=== PATIENT | female | born 1960 | race Caucasian/White ===

== ENCOUNTER → 2020-10-08 16:24 | Outpatient (CLI) | payer OTHER, SELFPAY ==
--- NOTE | ~2020-10-08 | MM_ITS ---
EXAMINATION: MM screening [facility] BI w robbin HISTORY: Screening mammogram TECHNIQUE: Craniocaudal and mediolateral oblique 3-D tomosynthesis images were obtained and synthetic 2-D images were generated. CAD analysis was submitted and interpreted. COMPARISON: 09/26/2018 bilateral digital screening mammogram 09/23/2017 diagnostic right digital mammogram 09/08/2017 bilateral digital screening mammogram BREAST PARENCHYMAL COMPOSITION: There are scattered areas of fibroglandular density. FINDINGS: Occasional benign calcifications. There is no evidence of suspicious mass, calcification, o r architectural distortion to suggest malignancy in either breast. There has been no suspicious inter milka change. IMPRESSION: 1. No mammographic evidence of malignancy. 2. Recommend routine screening mammography in one year. BI-RADS Category 2: Benign finding(s). Reviewed, dictated and finalized at location A.
== END ==
PROVIDERS: Visit Provider Obstetrics & Gynecology Gynecology
DX: Z12.31 Encounter for screening mammogram for malignant neoplasm of breast (principal)
CPT/HCPCS: 77063; 77067

== ENCOUNTER → 2020-11-12 15:09 | Outpatient (CLI) | payer OTHER, SELFPAY ==
--- NOTE | ~2020-11-12 | US_ITS ---
EXAMINATION: US transvaginal DATE: 11/12/2020 15:29 INDICATION: Postmenopausal bleeding Comparison:No prior studies for comparison. TECHNIQUE: Multiple transabdominal and endovaginal sonographic images of the pelvis performed. FINDINGS: The uterus measures 6.9 x 3.1 x 3.9 cm. The endometrial complex measures 5 mm. The ovaries are not visualized. No adnexal masses. There is no free fluid in the pelvis. There are no abnormal masses seen on either side. IMPRESSION: 1. Thickened endomtrial complex. The differential diagnosis includes endometrial hyperplasia, polyp a nd carcinoma. Biopsy is recommended. Reviewed, dictated and finalized at location A. IMPRESSION: 1. Thickened endomtrial complex. The differential diagnosis includes endometria l hyperplasia, polyp and carcinoma. Biopsy is recommended.
== END ==
PROVIDERS: Visit Provider Nurse Practitioner
DX: N95.0 Postmenopausal bleeding (principal); R93.89 Abnormal findings on diagnostic imaging of other specified body structures
CPT/HCPCS: 76830

== ENCOUNTER 2021-01-13 00:46 | Day surgery (SDC) | payer OTHER, SELFPAY ==
[2021-01-02 14:58] VITALS: BMI 37.1
[2021-01-13] MEDS: ACETAMINOPHEN 500 MG TABLET 1000 MG PO (06:35)
[2021-01-13] MEDS: LACTATED RINGERS 1,000 ML 30 ML IV CONT (06:36)
[2021-01-13 07:00] VITALS: BP 136/73; PULSE 84; RESP 16; TEMP 36.8; O2SAT 97
[2021-01-13] MEDS: SCOPOLAMINE 1.5 MG PATCH TRANSDERM (07:00)
--- NOTE | 2021-01-13 07:01 | WPDANESEPPF ---
Anes - Initial Pre Proc Eval Procedure: Operation Date: 01/13/21 07:30 Proposed Procedures p Hysteroscopy Dilation and Curettage - Lucy Obregon MD Date/Time: 01/13/21 07:01 Surgeon: Lucy Obregon MD Pre Op Diagnosis: post menopausal bleeding Patient Data Age: 60 Gender: F Height: 1.68 m Weight: 104.5 kg Allergies Allergy/AdvReac Type Severity Reaction Status Date / Time amoxicillin AdvReac Intermediate NAUSEA/VOMI Unverified 01/02/21 14:44 TING Home Medications Medication Instructions Recorded Confirmed Type Lactobac 40-Bifido 3-S.thermop 1 cap PO QAM 01/02/21 01/02/21 History [Probiotic] ascorbate calcium-bioflavonoid 1 tablet PO DAILY 01/02/21 01/02/21 History [Lachelle-C] aspirin [Aspir-81] 81 mg PO DAILY 01/02/21 01/02/21 History cholecalciferol (vitamin D3) 50 mcg PO DAILY 01/02/21 01/02/21 History [Vitamin D3] metoprolol succinate 25 mg PO HS 01/02/21 01/02/21 History Patient hx anesthesia problems: none Family hx anesthesia problems: post op nausea/vomiting Results Review: All pre-operative results and documents have been reviewed as part of the pre-operative evaluation. [facility] Past Medical History Medical History History of Holter monitoring ROJELIO (obstructive sleep apnea) Palpitations Surgical History Surgical History H/O mitral valve repair Social History Social History Smoking status: Never smoker Living arrangements: with family Spiritual care concerns: No Anes - Eval Final PreProcedure Day of Procedure 01/13/21 07:01 Patient weight: obese Heart: regular rate and rhythm Lungs: clear to auscultation Airway: Mallampati scale class II Neurological: alert and oriented Last oral intake: >/= 8 hours ASA classification: III Emergent: no Anesthetic plan: proceed Anesthesia type and monitoring: general GIVS and standard monitoring Results Review: All pre-operative results and documents have been reviewed as part of the pre-operative evaluation. Informed Consent: The patient's anesthetic plan and its attendant risks and benefits were discussed with the patient/family/POA. Questions were solicited and answers provided to the satisfaction of the patient/family/POA.
--- NOTE | 2021-01-13 07:12 | PM.HPGS ---
History of Present Illness History of Present Illness Consent: Risks, benefits, and alternatives have been discussed and questions answered. Patient agrees to proceed with procedure. Chief complaint: post menopausal bleeding Narrative: Concha De Leon is a 60 year old female with an episode of postmenopausal bleeding. Patient underwent pelvic ultrasound which revealed a thickened endometrial lining. It was recommended to further evaluate with D and C hysteroscopy. Risks of infection, bleeding, and perforation were reviewed. Possible pathology was discussed. Patient voiced understanding and agrees to proceed Review of Systems Constitutional: Constitutional: Reports fatigue Gastrointestinal: Gastrointestinal: Reports heartburn Genitourinary: Genitourinary: Reports vaginal dryness [facility] Past Medical History Medical History (Updated 01/13/21 @ 07:15 by Lucy Obregon MD) History of Holter monitoring (normal spontaneous vaginal delivery) x3 ROJELIO (obstructive sleep apnea) Palpitations Surgical History Surgical History (Updated 01/13/21 @ 07:15 by Lucy Obregon MD) H/O mitral valve repair History of tonsillectomy and adenoidectomy Social History Social History Smoking status: Never smoker Living arrangements: with family Spiritual care concerns: No Meds Home Medications and Allergies Home Medications Medication Instructions Recorded Confirmed Type Lactobac 40-Bifido 3-S.thermop 1 cap PO QAM 01/02/21 01/02/21 History [Probiotic] ascorbate calcium-bioflavonoid 1 tablet PO DAILY 01/02/21 01/02/21 History [Lachelle-C] aspirin [Aspir-81] 81 mg PO DAILY 01/02/21 01/02/21 History cholecalciferol (vitamin D3) 50 mcg PO DAILY 01/02/21 01/02/21 History [Vitamin D3] metoprolol succinate 25 mg PO HS 01/02/21 01/02/21 History Allergies Allergy/AdvReac Type Severity Reaction Status Date / Time amoxicillin AdvReac Intermediate NAUSEA/VOMI Unverified 01/02/21 14:44 TING Exam Const: General: healthy appearing and alert Orientation/consciousness: patient oriented x3 Resp: Effort & Inspection: normal respiratory effort Auscultation: clear to auscultation bilaterally Cardio: Rate: regular rate Rhythm: regular rhythm GI: GI Palp: Yes Soft to palpation, No Tenderness to palpation present (GI) and No Palpable mass present : External Female Exam: normal external appearance Speculum Exam - Vagina: normal appearance of the vagina and normal vaginal discharge Speculum Exam - Cervix: normal appearance of the cervix Bimanual exam- vagina & uterus: uterine size normal and consistency normal Bimanual Exam- Adnexa, other: normal adnexae and No adnexal tenderness Neuro: General: patient oriented x3 Assessment and Plan Assessment and plan (1) Post-menopausal bleeding: Code(s): N95.0 - Postmenopausal bleeding Status: Acute Assessment and Plan: Plan to proceed with D&C hysteroscopy
--- NOTE | 2021-01-13 07:16 | WPDHPUPDATE1 ---
History and Physical Update Update Date/Time: 01/13/21 07:16 History and Physical has been reviewed, including an updated exam of the patient. There are NO changes in the patient's condition. Risks, benefits, and alternatives have been discussed and questions answered. Patient agrees to proceed with procedure.
[2021-01-13 07:25] VITALS: BP 125/58; PULSE 70; RESP 20
[2021-01-13] MEDS: KETOROLAC 30 MG/ML VIAL (*BKC) IV PUSH (07:50)
--- NOTE | 2021-01-13 07:50 | P.OP_ITS ---
Procedure Note - Detailed Date of Procedure 01/13/21 Pre-op Diagnosis post menopausal bleeding Post-op Diagnosis same Procedure Performed D&C hysteroscopy with MyoSure resection of polyps Surgeon Lucy Obregon MD Anesthesia MAC and local Findings The cervix is stenotic. The uterus sounds to 7cm and appears grossly atrophic. There are 2 polyps on the posterior fundal surface. Description of Procedure The patient was taken to the operating room placed under anesthesia in the dorsal lithotomy position. She was prepped and draped in the usual sterile fashion. [place] speculum was placed in the vagina and the cervix grasped on the anterior lip with a tenaculum. The cervix was noted to be stenotic therefore the os Finders were used to open the external os. The uterus is then sounded to 7cm. The cervix is serially dilated with Hegar. The diagnostic hysteroscope is placed with the stated findings. The MyoSure device is opened and placed and under direct visualization both polyps are removed. The instruments are removed and the medium sharp curette used to sharply curette the endometrium until a good uterine cry was noted in all areas. Minimal materials obtained consistent with the atrophic appearance. All instruments are removed and the patient awakened from anesthesia. She was taken to recovery in stable condition. Sponge, needle, and instrument counts are correct per the OR staff. Estimated Blood Loss 5 Drains No Packing No Pathology yes (Endometrial shavings and curettings) Complications No immediate complications Condition stable Disposition PACU
[2021-01-13 07:55] VITALS: BP 114/51; PULSE 87; RESP 20; O2SAT 86
[2021-01-13 08:25] VITALS: BP 120/68; PULSE 71; RESP 20; O2SAT 98
[2021-01-13 08:55] VITALS: BP 125/56; PULSE 71; RESP 20; O2SAT 94
== END 2021-01-13 09:17 | disposition home or self-care (01) ==
PROVIDERS: PCP Internal Medicine; Visit Provider Obstetrics & Gynecology Gynecology
PROC: 0U5B8ZZ Destruction of Endometrium, Via Natural or Artificial Opening Endoscopic (ICD-10-PCS; CPT 58563; principal; 2021-01-13 07:30)
DX: N95.0 Postmenopausal bleeding (principal); N84.0 Polyp of corpus uteri; N88.2 Stricture and stenosis of cervix uteri; G47.33 Obstructive sleep apnea (adult) (pediatric); Z79.82 Long term (current) use of aspirin; E66.9 Obesity, unspecified; Z68.38 Body mass index [BMI] 38.0-38.9, adult
CPT/HCPCS: 58558; 88305; A9270; J1885; J2250; J2405; J2704; J3010; J7030; J7120

== ENCOUNTER 2021-10-15 15:34 | Outpatient (CLI) | payer OTHER, SELFPAY ==
--- NOTE | ~2021-10-15 | MM_ITS ---
EXAMINATION: MM screening [facility] BI w robbin HISTORY: Screening TECHNIQUE: Craniocaudal and mediolateral oblique 3-D tomosynthesis images were obtained and synthetic 2-D images were generated. CAD analysis was submitted and interpreted. COMPARISON: Comparison to multiple prior studies sequentially, with oldest reviewed study dated 09/08. BREAST PARENCHYMAL COMPOSITION: There are scattered areas of fibroglandular density. FINDINGS: There is no evidence of suspicious mass, calcification, or architectural distortion to sugg est malignancy in either breast. There has been no suspicious interval change. IMPRESSION: 1. No mammographic evidence of malignancy. 2. Recommend routine screening mammography in one year. BI-RADS Category 1: Negative Reviewed, dictated and finalized at location A.
== END 2021-10-15 15:35 | disposition home or self-care (01) ==
PROVIDERS: PCP Internal Medicine; Visit Provider Nurse Practitioner
DX: Z12.31 Encounter for screening mammogram for malignant neoplasm of breast (principal)
CPT/HCPCS: 77063; 77067

== ENCOUNTER → 2022-08-04 15:23 | Outpatient (CLI) | payer OTHER, SELFPAY ==
--- NOTE | ~2022-08-04 | US_ITS ---
EXAMINATION: US transvaginal DATE: 08/04/2022 15:50 INDICATION: Postmenopausal bleeding Comparison:Ultrasound dated 11/12/2020 TECHNIQUE: Multiple endovaginal sonographic images of the pelvis performed. FINDINGS: The uterus measures 8.8 x 4.3 x 5.7 cm. There is a slightly hyperechoic mass in the uterus measuring 1.3 cm, compatible with a fibroid. The endometrial complex measures 6 mm. The ovaries are not visualized. There is no free fluid in the pelvis. There are no abnormal masses seen on either side. IMPRESSION: 1. Thickened endomtrial complex. The differential diagnosis includes endometrial hyperplasia, polyp a nd carcinoma. Biopsy is recommended. 2: Small uterine fibroid measuring 1.3 cm. Reviewed, dictated and finalized at location A. IMPRESSION: 1. Thickened endomtrial complex. The differential diagnosis includes endometria l hyperplasia, polyp and carcinoma. Biopsy is recommended. 2: Small uterine fibroid measuring 1.3 cm.
== END ==
PROVIDERS: PCP Internal Medicine; Visit Provider Advanced Practice Midwife
DX: D25.9 Leiomyoma of uterus, unspecified (principal); R93.89 Abnormal findings on diagnostic imaging of other specified body structures; N95.0 Postmenopausal bleeding
CPT/HCPCS: 76830

== ENCOUNTER → 2022-10-22 10:22 | Outpatient (CLI) | payer OTHER, SELFPAY ==
--- NOTE | ~2022-10-22 | MM_ITS ---
EXAMINATION: MM screening [facility] BI w robbin HISTORY: Screening mammogram TECHNIQUE: Craniocaudal and mediolateral oblique 3-D tomosynthesis images were obtained and synthetic 2-D images were generated. CAD analysis was submitted and interpreted. COMPARISON: 10/15/2021, 10/08/2020, 09/26/2018 BREAST PARENCHYMAL COMPOSITION: There are scattered areas of fibroglandular density. FINDINGS: No suspicious mass, calcification, or architectural distortion are identified in either kristian ast to suggest malignancy. There has been no suspicious interval change. IMPRESSION: 1. No mammographic evidence of malignancy. 2. Recommend routine screening mammography in one year. BI-RADS Category 1: Negative Reviewed, dictated and finalized at location A.
== END ==
PROVIDERS: PCP Nurse Practitioner; Visit Provider Nurse Practitioner
DX: Z12.31 Encounter for screening mammogram for malignant neoplasm of breast (principal)
CPT/HCPCS: 77063; 77067

== ENCOUNTER 2022-12-07 00:21 | Day surgery (SDC) | payer OTHER, SELFPAY ==
--- NOTE | 2022-11-30 17:19 | PC.NURSE ---
Report to the Outpatient Waiting Room, entrance under the green pavilion located off [facility], at time 0615 on date 12/07/22. Planned Procedure Time: 0615. Time changes happen often and if your time is changed the preop area will call you the afternoon before. - You and your visitor will be asked to self-screen and do not enter if you have any COVID symptoms. - A mask is optional within the hospital at this time. Patients may have clear liquids (water, carbonated beverages, clear teas, apple juice) until 3 hours prior to surgery with a maximum of 20 ounces. 0515 - No food from midnight until time of surgery - Infants may have breast milk until 4 hours before surgery, formula 6 hours prior to surgery. - Children will be allowed to drink immediately following surgery. If applicable, please bring a bottle or sippy cup to assist with drinking. Juice, water, soda, and popsicles are readily available. For infants on formula, please bring formula the day of surgery. Pacifiers are allowed. Take the following medications with a SIP of water the morning of surgery: metoprolol, thyroid BRANCH GENERAL MANAGER DO NOT STOP ANY OF YOUR OTHER PRESCRIPTION MEDICATIONS PRIOR TO SURGERY ?EXCEPT THE FOLLOWING Medications to discontinue per physician check with Dr. Obregon regarding stopping ASA, vitamins and supplements, progesterone Date to take last dose vitamins and supplements- 12/04/22, progesteron- 12/06/22, Aspirin- check with Dr. Obregon Please no make-up, nail slovenian, hairspray, perfume, deodorant, or body powder the day of surgery. No jewelry (including any body piercings) or valuables the day of surgery, leave them at home. Please take a shower or bath the night before, or the morning of, surgery with an antibacterial soap. Wear comfortable, loose fitting clothing. Children are encouraged to wear pajamas. - Jewelry must be removed prior to entering the operating room. Rings and piercings that are not removed may be cut off. - The hospital will not accept responsibility for valuables. - Please leave all valuables, including medications, at home the day of surgery. If you are going home after surgery, a licensed regional company truck driver must drive you home. - NO public transportation without another adult if you receive anesthesia. - We recommend that an adult stay with you for 24 hours following discharge. - We also recommend that you do not drive, make important decision, drink alcoholic beverages, or take any drugs that were not prescribed by your health care provider for at least 24 hours after your discharge time. For Pediatric surgeries, we recommend two adults accompany the child home. Follow any additional instructions given to you from your surgeon. If you or anyone in your household have experienced Covid symptoms in the past week, please notify your surgeon or the nurse liaison at the phone number below for possible testing. Telephone instructions given to Patient- Concha De Leon and asked if any additional questions and then verbalized understanding. Patient advised to call surgeon office or pre surgery nurse liaison [phone] if any additional questions.
[2022-11-30 17:27] VITALS: BMI 39.3
[2022-12-07 07:40] VITALS: BP 132/80; PULSE 85; RESP 16; TEMP 36.4; O2SAT 96
--- NOTE | 2022-12-07 07:43 | WPDHPUPDATE1 ---
History and Physical Update Update Date/Time: 12/07/22 07:43 History and Physical has been reviewed, including an updated exam of the patient. There are NO changes in the patient's condition. Risks, benefits, and alternatives have been discussed and questions answered. Patient agrees to proceed with procedure.
--- NOTE | 2022-12-07 07:43 | PM.HPGS ---
History of Present Illness History of Present Illness Consent: Risks, benefits, and alternatives have been discussed and questions answered. Patient agrees to proceed with procedure. Chief complaint: Post Menopausal Bleeding Narrative: Concha De Leon is a 62 year old female with an episode of postmenopausal bleeding and intermittent and abdominal pain. Patient had started using pellets through a physician in [place] in May. Patient underwent pelvic ultrasound which revealed a thickened endometrium 6mm. It was recommended to proceed with D&C hysteroscopy. Risks of infection, bleeding, perforation, and possible pathology are reviewed. Patient no recent episodes bleeding. Review of Systems Review of Systems: not repeated day of surgery; patient states no changes in status PMFSH Past Medical History Medical History (Updated 12/07/22 @ 07:46 by Lucy Obregon MD) (normal spontaneous vaginal delivery) x3 ROJELIO (obstructive sleep apnea) Palpitations Status post hysteroscopy 2020 with removal of polyps Surgical History Surgical History (Updated 01/13/21 @ 07:15 by Lucy Obregon MD) H/O mitral valve repair History of tonsillectomy and adenoidectomy Social History Social History Smoking status: Never smoker Substance use type: does not use Living arrangements: with family Spiritual care concerns: No Meds Home Medications and Allergies Home Medications Medication Instructions Recorded Confirmed Type Lactobacillus 40-Bifidobact 1 cap PO QAM 01/02/21 11/30/22 History 3-S.thermophilus 100 billion cell capsule (Probiotic) ascorbate calcium-bioflavonoid ER 1 tablet PO DAILY 01/02/21 11/30/22 History 1,000 mg-200 mg tab,extended release aspirin 81 mg tablet,delayed 81 mg PO DAILY 01/02/21 11/30/22 History release cholecalciferol (vitamin D3) 50 50 mcg PO DAILY 01/02/21 11/30/22 History mcg (2,000 unit) capsule (Vitamin D3) metoprolol succinate 25 mg 37.5 mg PO DAILY 01/02/21 11/30/22 History tablet,extended release 24 hr progesterone micronized 200 mg 200 mg PO DAILY 11/30/22 11/30/22 History capsule thyroid (pork) 30 mg tablet (WHIP OPERATOR 30 mg PO DAILY 11/30/22 11/30/22 History Thyroid) Allergies Allergy/AdvReac Type Severity Reaction Status Date / Time amoxicillin AdvReac Intermediate NAUSEA/VOMI Verified 11/30/22 17:03 TING Sutures AdvReac Other Verified 11/30/22 17:32 Exam Const: General: healthy appearing and alert Orientation/consciousness: patient oriented x3 Resp: Effort & Inspection: normal respiratory effort GI: GI Palp: Yes Soft to palpation, No Tenderness to palpation present (GI) and No Palpable mass present : External Female Exam: normal external appearance Speculum Exam - Vagina: normal appearance of the vagina and normal vaginal discharge Speculum Exam - Cervix: normal appearance of the cervix Bimanual exam- vagina & uterus: uterine size normal and consistency normal Bimanual Exam- Adnexa, other: normal adnexae and No adnexal tenderness Neuro: General: patient oriented x3 Assessment and Plan Assessment and plan (1) Post-menopausal bleeding: Code(s): N95.0 - Postmenopausal bleeding Status: Acute Assessment and Plan: With thickened endometrium and history of polyps it was recommended to undergo D&C hysteroscopy.
[2022-12-07 07:58] VITALS: BMI 38.8
[2022-12-07] MEDS: LACTATED RINGERS 1,000 ML 30 ML IV CONT (08:10)
[2022-12-07] MEDS: ACETAMINOPHEN 500 MG TABLET 1000 MG PO (08:22)
--- NOTE | 2022-12-07 09:13 | P.PNAN_ITS ---
Anes - Initial Pre Proc Eval Procedure: Operation Date: 12/07/22 09:45 Proposed Procedures p Hysteroscopy Dilation and Curettage - Lucy Obregon MD Date/Time: 12/07/22 09:13 Surgeon: Lucy Obregon MD Pre Op Diagnosis: Post Menopausal Bleeding Patient Data Age: 62 Gender: F Height: 1.65 m Weight: 105.9 kg Last Vital Signs Temp 36.4 C L 12/07/22 07:40 Pulse 85 12/07/22 07:40 Resp 16 12/07/22 07:40 BP 132/80 12/07/22 07:40 Pulse Ox 96 12/07/22 07:40 O2 Del Method Room Air 12/07/22 07:40 Allergies Allergy/AdvReac Type Severity Reaction Status Date / Time amoxicillin AdvReac Intermediate NAUSEA/VOMI Verified 12/07/22 07:56 TING Sutures AdvReac Other Verified 12/07/22 07:56 Home Medications Medication Instructions Recorded Confirmed Type Lactobacillus 40-Bifidobact 1 cap PO QAM 01/02/21 11/30/22 History 3-S.thermophilus 100 billion cell capsule (Probiotic) ascorbate calcium-bioflavonoid ER 1 tablet PO DAILY 01/02/21 11/30/22 History 1,000 mg-200 mg tab,extended release aspirin 81 mg tablet,delayed 81 mg PO DAILY 01/02/21 11/30/22 History release cholecalciferol (vitamin D3) 50 50 mcg PO DAILY 01/02/21 11/30/22 History mcg (2,000 unit) capsule (Vitamin D3) metoprolol succinate 25 mg 37.5 mg PO DAILY 01/02/21 11/30/22 History tablet,extended release 24 hr progesterone micronized 200 mg 200 mg PO DAILY 11/30/22 11/30/22 History capsule thyroid (pork) 30 mg tablet (PROMOTIONAL REPRESENTATIVE 30 mg PO DAILY 11/30/22 11/30/22 History Thyroid) Patient hx anesthesia problems: none Family hx anesthesia problems: none Results Review: All pre-operative results and documents have been reviewed as part of the pre- operative evaluation. [facility] Past Medical History Medical History (normal spontaneous vaginal delivery) x3 ROJELIO (obstructive sleep apnea) Palpitations Status post hysteroscopy 2021 with removal of polyps Surgical History Surgical History H/O mitral valve repair History of tonsillectomy and adenoidectomy Social History Social History Smoking status: Never smoker Substance use type: does not use Living arrangements: with family Spiritual care concerns: No Anes - Eval Final PreProcedure Day of Procedure 12/07/22 09:13 Patient weight: obese Heart: regular rate and rhythm Airway: Mallampati scale class II Neurological: alert and oriented Last oral intake: >/= 8 hours ASA classification: III Emergent: no Anesthetic plan: proceed Anesthesia type and monitoring: general GIVS and standard monitoring Results Review: All pre-operative results and documents have been reviewed as part of the pre- operative evaluation. Informed Consent: The patient's anesthetic plan and its attendant risks and benefits were discussed with the patient/family/POA. Questions were solicited and answers provided to the satisfaction of the patient/family/POA.
[2022-12-07] MEDS: ceFAZolin SODIUM 1 GM VIAL 2 GM IV PUSH (10:00)
[2022-12-07] MEDS: KETOROLAC 15 MG/ML VIAL (*BKC) IV PUSH (10:03)
--- NOTE | 2022-12-07 10:08 | P.OP_ITS ---
Procedure Note - Detailed Date of Procedure 12/07/22 Pre-op Diagnosis Post Menopausal Bleeding Post-op Diagnosis Same Procedure Performed D&C hysteroscopy Surgeon Lucy Obregon MD Anesthesia MAC Findings Uterus sounds to 9cm and appears grossly atrophic Description of Procedure The patient is taken to the operating room and placed under anesthesia in the dorsal lithotomy position. She was prepped and draped in usual sterile fashion. [place] speculum was placed in the vagina and the cervix grasped on the anterior lip with a tenaculum. The uterus is sounded to 9cm. The diagnostic hysteroscope was placed and with no abnormalities noted it is removed. The sharp small curette is used to curette the endometrium until a good uterine cry was noted in all areas. Minimal material was obtained consistent with the atrophic appearance. All instruments are removed. Sponge, needle, and instrument counts are correct per the OR staff. Patient was awakened from anesthesia and taken to recovery in stable condition. Estimated Blood Loss 5 Drains No Packing No Pathology Yes (Endometrial curettings) Complications No immediate complications Condition Stable Disposition PACU
[2022-12-07 10:09] VITALS: BP 100/59; PULSE 80; RESP 16; O2SAT 94
[2022-12-07 10:35] VITALS: BP 105/66; PULSE 75; RESP 16; O2SAT 93
[2022-12-07 11:05] VITALS: BP 99/67; PULSE 65; RESP 16
[2022-12-07 11:35] VITALS: PULSE 67; RESP 16
== END 2022-12-07 11:50 | disposition home or self-care (01) ==
PROVIDERS: PCP Internal Medicine; Visit Provider Obstetrics & Gynecology Gynecology
PROC: 0U5B8ZZ Destruction of Endometrium, Via Natural or Artificial Opening Endoscopic (ICD-10-PCS; CPT 58563; principal; 2022-12-07 09:45)
DX: N95.0 Postmenopausal bleeding (principal); N85.8 Other specified noninflammatory disorders of uterus; G47.33 Obstructive sleep apnea (adult) (pediatric); Z79.82 Long term (current) use of aspirin; E66.9 Obesity, unspecified; Z68.38 Body mass index [BMI] 38.0-38.9, adult
CPT/HCPCS: 58558; 88305; A9270; J0690; J1100; J1885; J2250; J2405; J2704; J3010; J7120

== ENCOUNTER → 2023-02-22 12:14 | Outpatient (CLI) | payer OTHER, SELFPAY ==
--- NOTE | ~2023-02-22 | DEXA_ITS ---
Bone Density Report Name: KEVON WATSON Age: 62 Sex: Female Ethnicity: White Date of : 1960 Indication: postmenopausal; screening for osteoporosis; Referring Provider: JONNA MARTIN Study: Bone densitometry was performed. Exam Date: February 22, 2023 Accession number: [id number] Bone Density: Region BMD T-score Z-score Classification AP Spine (L1-L4) 0.949 -0.9 0.8 Normal Femoral Neck (Left) 0.882 0.3 1.8 Normal Total Hip (Left) 0.977 0.3 1.5 Normal Femoral Neck (Right) 0.890 0.4 1.9 Normal Total Hip (Right) 1.047 0.9 2.1 Normal Total Hip Mean 1.012 0.6 1.8 Normal World Health Organization criteria for BMD impression classify patients as: Normal (T-score at or above -1.0), Osteopenia (T-score between -1.0 and -2.5), or Osteoporosis (T-score at or below -2.5). 10-year Fracture Risk: FRAX not reported because: All T-scores for Spine Total, Hip Total, Femoral Neck at or above -1.0 Clinical Information Provided by Patient: Has used the following medications: HRT (i.e. estrogen/hormone therapy), Vitamin D, Calcium, LOAN DOCUMENTS CLOSER Thyroid Patient maximum height was 66.0 Menopause Age: 49 Does not regularly consume dairy products Drinks caffeinated beverages Onset of menses at age 9 Number of children 3 Impression: The patient has normal bone mass. Discussion: BONE DENSITY IS ABOVE THE MINIMUM DESIRABLE LEVEL AT ALL SKELETAL SITES TESTED. This patient?s bone mineral density is above the minimum desirable level (T-score -1.0 or better) at all sites measured. The patient should follow a healthful lifestyle (good nutrition with adequate calcium and vitamin D, and appropriate weight-bearing exercise). Follow-Up: Consider repeating this study in 5 years or sooner if there is some new clinical indication. Reported by: BROWN on 02/22/2023 12:52:00 PM. Reviewed, dictated and finalized at location [facility]
== END ==
PROVIDERS: PCP Obstetrics & Gynecology Gynecology; Visit Provider Obstetrics & Gynecology Gynecology
DX: Z78.0 Asymptomatic menopausal state (principal)
CPT/HCPCS: 77080

== ENCOUNTER 2024-07-17 00:33 | Day surgery (SDC) | payer OTHER, SELFPAY ==
[2024-07-05 14:18] VITALS: BMI 31.4
--- NOTE | 2024-07-14 18:47 | P.PNAN_ITS ---
Anes - Eval Pre Procedure Procedure: Operation Date: 07/17/24 08:30 Proposed Procedures p Screening Colonoscopy - Irvin Hong MD Date/Time: 07/14/24 18:47 Pre Op Diagnosis: neoplasm screening Patient Data Age: 64 Gender: F Height: 1.63 m Weight: 83 kg Allergies Allergy/AdvReac Type Severity Reaction Status Date / Time amoxicillin AdvReac Intermediate NAUSEA/VOMI Verified 07/05/24 14:14 TING Sutures AdvReac Other Verified 07/05/24 14:14 Home Medications ?Medication ?Instructions ?Recorded ?Confirmed ?Type Lactobacillus 40-Bifidobact 1 cap PO QAM 01/02/21 07/05/24 History 3-S.thermophilus 100 billion cell capsule (Probiotic) aspirin 81 mg tablet,delayed 81 mg PO DAILY 01/02/21 07/05/24 History release cholecalciferol (vitamin D3) 50 50 mcg PO DAILY 01/02/21 07/05/24 History mcg (2,000 unit) capsule (Vitamin D3) metoprolol succinate 25 mg 37.5 mg PO DAILY 01/02/21 07/05/24 History tablet,extended release 24 hr progesterone micronized 200 mg 200 mg PO DAILY 11/30/22 07/05/24 History capsule thyroid (pork) 30 mg tablet (SECURITY CONTROL ROOM OFFICER 30 mg PO DAILY 11/30/22 07/05/24 History Thyroid) rosuvastatin 5 mg tablet (Crestor) 5 mg PO .COMPLEX 03/02/23 07/05/24 History alprazolam 0.25 mg tablet 0.25 mg PO QID PRN anxiety 07/05/24 07/05/24 History famotidine 20 mg tablet 20 mg PO BID 07/05/24 07/05/24 History tirzepatide (weight loss) 2.5 2.5 mg subcut WEEKLY 07/05/24 07/05/24 History mg/0.5 mL subcutaneous pen injector (Zepbound) Patient hx anesthesia problems: none Family hx anesthesia problems: none Results Review: All pre-operative results and documents have been reviewed as part of the pre- operative evaluation. [facility] Past Medical History Medical History (Updated 07/14/24 @ 18:48 by Sandra Sykes CRNA) SVT (supraventricular tachycardia) Status post hysteroscopy 2020 with removal of polyps (normal spontaneous vaginal delivery) x3 ROJELIO (obstructive sleep apnea) Palpitations Surgical History Surgical History History of tonsillectomy and adenoidectomy H/O mitral valve repair Social History Social History Social History: Caffeine-coffee Smoking status: Never smoker Alcohol intake: never Substance use: never Substance use type: does not use Lack of Transportation: No Lack of Food: Never True Current Housing: I Have Housing Concerned About Future Housing: No Difficulty Paying Gas/Electric Bills: No Difficulty Paying for Meds: No Currently Unemployed: No Education: High School Diploma/GED Difficulty w/ Childcare or Family Care: No Living arrangements: with family Spiritual care concerns: No Exam Day of Procedure 07/14/24 18:47
--- OUTSIDE RECORDS SUMMARY | 2024-07-17 00:36 | XMS_ITS | CONTINUITY OF CARE DOCUMENT ---
Author Name kvng, kvng Address Unknown Organization [facility] Address [address] [place] [address] Phone [phone] Care Team Providers Care Guest Relation Officer Name Role Phone Tristen BROOKS, Nicholas Unavailable YONY ABREU MD Unavailable [phone] YONY ABREU MD Unavailable [phone] PROBLEMS Condition Status Date Provider Notes Chest pain active Tita Barber VITAL SIGNS Date Observation Value Provider blood pressure, diastolic 70 mm[Hg] Cy carloz Marsh blood pressure, systolic 122 mm[Hg] Maureen Marsh SOCIAL HISTORY Date Observation Value Provider smoking status Never smoker Concha yates INS[employer]ANCE PROVID[employer] Payer name Policy type / Coverage type [place] [employer] green [employer] Other [id number] HISTORY OF PROCEDURES Procedure Date Procedure Name Provider Procedure Notes S tatus Stress EKG Sabino Benjamin MD completed
--- OUTSIDE RECORDS SUMMARY | 2024-07-17 00:36 | XMS_ITS | Encounter Summary ---
Author Organization [facility] Address [address] [place] [address] Phone Care Team Providers Care Terrazzo Worker Helper Name Role Phone Keon Pelaez MD Primary Care Provider Robin Mae MD Unavailable [phone] Harman Bonner MD Unavailable [phone] Diego Giordano MD Unavailable Encounter Details Date Type Department Care Team (Late st Contact Info) Description 05/25/2019 Orders Only [facility] Surgery [address] [facility] 8th [place] [address] [place] [phone] Diego Giordano MD [address] [place], [place] [id number] Social History Tobacco Use Types Packs/Day Years Used Date Smoking Tobacco: Never Smokeless Tobacco: Never Alcohol Use Standard Drinks/Week Comments Yes 0 (1 standard drink = 0.6 oz pur e alcohol) very rare Comments Unknown Sex and Gender Information Value Date Recorded Sex Assigned at Not on file Legal Sex Female 4:01 AM CHEMICAL TREATMENT OPERATOR Gender Identity Female 12/15/2019 8:16 PM CDT Sexual Orientation Straight 12/13/2020 8: 03 AM CDT documented as of this encounter Plan of Treatment Not on file documented as of this encounter Visit Diagnoses Not on filedocumented in this encounter Additional Health Concerns Infection Onset Date Last Indicated Resolved Time Exposure, COVID-19 Comment:Added automatically based on COVID19 lab answers indicating exposure risk 05/13/2023 05/13/2023 05/23/2023 3:[address] COVID: Suspected 05/13/2023 05/13/2023 05/13/2023 8:34 AM CHEMICAL TREATMENT OPERATOR COVID: Suspected 05/13/2023 05/13/2023 05/13/2023 2:55 PM CHEMICAL TREATMENT OPERATOR documented as of this encounter Care Teams Terrazzo Worker Helper Relationship Specialty Start Date End Date Keon Pelaez MD [address] [place] [address] PCP - General Internal Medicine 07/21/18 Robin Mae MD [address] [place] [address] Referring Physician Cardiology 08/10/18 Harman Bonner MD [address] [place] [address] Referring Physician Cardiology 04/26/19 Diego Giordano MD [address] [place] [address] Surgeon Cardiothoracic Surgery 07/04/19 documented as of this encounter
--- OUTSIDE RECORDS SUMMARY | 2024-07-17 00:36 | XMS_ITS | Encounter Summary ---
Author Organization [facility] Address [address] [place] [address] Phone Care Team Providers Care Electrolysist Name Role Phone Keon Pelaez MD Primary Care Provider [phone] Robin Mae MD Unavailable Harman Bonner MD Unavailable [phone] Diego Giordano MD Unavailable Encounter Details Date Type Department Care Team (Late st Contact Info) Description 01/17/2020 Orders Only [facility] [phone] Scanning, Provider Social History Tobacco Use Types Packs/Day Years Used Date Smoking Tobacco: Former Smokeless Tobacco: Never Comments:pt states smoked ve ry minimal when she was a teen Alcohol Use Standard Drinks/Week Comments Yes 0 (1 standard drink = 0.6 oz pur e alcohol) very rare Comments No Sex and Gender Information Value Date Recorded Sex Assigned at Not on file Legal Sex Female 4:01 AM BAG CUTTER Gender Identity Female 12/15/2019 8:16 PM CDT Sexual Orientation Straight 12/13/2020 8: 03 AM CDT documented as of this encounter Plan of Treatment Not on file documented as of this encounter Procedures Procedure Name Priority Date/Time Associated Diagnosis Comments SCAN - RADIOLOGY/IMAGING 01/17/2020 documented in this encounter Results * SCAN - RADIOLOGY/IMAGING (01/17/2020) Anatomical Region Laterality Modality Other us Provider Scanning Final Result documented in this encounter Visit Diagnoses Not on filedocumented in this encounter Additional Health Concerns Infection Onset Date Last Indicated Resolved Time Exposure, COVID-19 Comment:Added automatically based on COVID19 lab answers indicating exposure risk 05/13/2023 05/13/2023 05/23/2023 3:05 AM BAG CUTTER COVID: Suspected 05/13/2023 05/13/2023 05/13/2023 8:34 AM BAG CUTTER COVID: Suspected 05/13/2023 05/13/2023 05/13/2023 2:55 PM BAG CUTTER documented as of this encounter Care Teams Electrolysist Relationship Specialty Start Date End Date Keon Pelaez MD [address] [address] PCP - General Internal Medicine 07/21/18 Robin Mae MD [address] [address] Referring Physician Cardiology 08/10/18 Harman Bonner MD [address] [address] Referring Physician Cardiology 04/26/19 Diego Giordano MD [address] [place] [address] Surgeon Cardiothoracic Surgery 07/04/19 documented as of this encounter
--- OUTSIDE RECORDS SUMMARY | 2024-07-17 00:36 | XMS_ITS | Encounter Summary ---
Author Organization [facility] Address [address] [place] [address] Phone Care Team Providers Care Dry Chain Puller Name Role Phone Keon Pelaez MD Primary Care Provider Robin Mae MD Unavailable Harman Bonner MD Unavailable [phone] Diego Giordano MD Unavailable [phone] Encounter Details Date Type Department Care Team (Late st Contact Info) Description 05/25/2019 Orders Only [facility] Surgery [address] [facility] 8th [place] [address] [place] [phone] Diego Giordano MD [address] [place], [place] [id number] Social History Tobacco Use Types Packs/Day Years Used Date Smoking Tobacco: Never Smokeless Tobacco: Never Alcohol Use Standard Drinks/Week Comments Yes 0 (1 standard drink = 0.6 oz pur e alcohol) very rare Comments Unknown Sex and Gender Information Value Date Recorded Sex Assigned at Not on file Legal Sex Female 4:01 AM PUMP ERECTOR Gender Identity Female 12/15/2019 8:16 PM CDT [...] COVID: Suspected 05/13/2023 05/13/2023 05/13/2023 8:34 AM PUMP ERECTOR COVID: Suspected 05/13/2023 05/13/2023 05/13/2023 2:55 PM PUMP ERECTOR documented as of this encounter Care Teams Dry Chain Puller Relationship Specialty Start Date End Date Keon Pelaez MD [address] [address] PCP - General Internal Medicine 07/21/18 Robin Mae MD [address] [place] [address] Referring Physician Cardiology 08/10/18 Harman Bonner MD [address] [place] [address] Referring Physician Cardiology 04/26/19 Diego Giordano MD [address] [place] [address] Surgeon Cardiothoracic Surgery 07/04/19 documented as of this encounter
--- OUTSIDE RECORDS SUMMARY | 2024-07-17 00:36 | XMS_ITS | Referral Summary ---
Author Organization [facility] Address [address] [place] [address] Care Team Providers Care Side Splitter Name Role Phone Keon Pelaez MD Primary Care Provider [phone] oRbin Mae MD Unavailable [phone] Harman Bonner MD Unavailable [phone] Diego Giordano MD Unavailable Encounters Date Type Department Care Team Description 06/26/2024 [facility] [address] [place] [address] [address] [place] [id number] Amanda Kolb MA 06/21/2024 Telephone [facility] at [address] [address] Ana Rosa Alvarez MA 06/20/2024 2:40 PM FURNITURE DUSTER Ancillary Procedure [facility] Imaging at [address] [address] Acute cough 06/20/2024 2:30 PM FURNITURE DUSTER Office Visit [facility] at [address] [address] Coreen Siu PA Acute cough (Primary Dx) 06/14/2024 1:00 PM FURNITURE DUSTER Telemedicine [facility] [address] [facility] [address] [place] [address] Maylin Dent MD Encounter for weight loss counseling (Primary Dx); Metabolic and nutritional disorder; Obesity, Class II, BMI 35-39.9 05/15/2024 Orders Only [facility] [address] [facility] [address] [place] [address] Hazel Gaspar NP Class 2 obesity from Last 3 Months Allergies Active Allergy Reactions Criticality Noted Date Comments Amoxicillin Nausea only Low 07/21/2018 Other Other (See comments) Low 05/03/2019 Vicryl sutures from skin cancer removal, caused irritation until removed Medications aspirin 81 mg chewable tablet Take 1 tablet (81 mg total) by mouth daily 30 tablet 11 0 Active acetaminophen (TYLENOL) 500 mg tabletIndicatio ns:Pain Take 2 tablets (1,000 mg total) by mouth every 6 (six) hours as needed for pain 0 Active cholecalciferol (VITAMIN D-3) 1,000 unit Take 2 tablet/capsule (2,000 Units total) by mouth daily Active ascorbate calcium-bioflav onoid 1,000-200 mg tablet Take 1 tablet by mouth CIRILO C Active L.acidoph/B.hang g/L.plant/B.lac (PROBIOTIC ACIDOPHILUS BEADS ORAL) Take 1 tablet by mouth daily Active progesterone (PROMETRIUM) 200 mg capsule 100 mg 3 Active BIG 6 DEALER Thyroid 30 mg tablet Take 1 tablet (30 mg total) by mouth daily 3 Active ALPRAZolam (XANAX) 0.25 mg tablet Take 1 tablet (0.25 mg total) by mouth 2 (two) times a day as needed for anxiety 60 tablet 4 Active famotidine (PEPCID) 20 mg tablet Take 1 tablet (20 mg total) by mouth 2 (two) times a day 60 tablet 11 4 025 Active Winlevi 1 % cream 4 Active UNABLE TO FIND Biote Hormone therapy Active rosuvastatin (CRESTOR) 5 mg tablet Take 1 tablet (5 mg total) by mouth daily 90 tablet 3 4 Active tirzepatide, weight loss, (Zepbound) 10 mg/0.5 mL pen injectorIndicat ions:Weight Loss Management for Obese Patient (BMI >= 30) Inject 0.5 mL (10 mg total) under the skin every 7 days Start after completion of four weeks of zepbound 7.5 mg dose. 2 mL 2 5 Active metoprolol XL (TOPROL-XL) 25 mg extended release tablet TAKE 1 AND 1/2 TABLETS(37.5 MG) BY MOUTH DAILY IN THE EVENING 135 tablet 2 5 Active tirzepatide, weight loss, (Zepbound) 7.5 mg/0.5 mL pen injectorIndicat ions:Weight Loss Management for Obese Patient (BMI >= 30) Inject 0.5 mL (7.5 mg total) under the skin every 7 days 2 mL 2 5 Active ipratropium (ATROVENT) 21 mcg (0.03 %) nasal spray Administer 2 sprays into each nostril every 12 (twelve) hours 30 mL 5 Active tirzepatide, weight loss, (Zepbound) 7.5 mg/0.5 mL pen injectorIndicat ions:Weight Loss Management for Obese Patient (BMI >= 30) Inject 0.5 mL (7.5 mg total) under the skin every 7 days 2 mL 4 025 Discontinu ed(Reorder ) methylPREDNISol one (MEDROL DOSEPACK) 4 mg Dosepack Take as directed on package. 21 tablet 5 025 Active Problems Problem Noted Date Diagnosed Date Well woman exam 11/23/2023 Assessment & Plan (12/10/2023 2:33 AM CDT): -Pap: Remote history of abnormal requiring colposcopy. Previously receiving annual Paps with previous Roving Carrier, NILM [id number]. Repeated today with HPV co-testing. -HPV vaccine: Not received, no longer eligible -STI screening: Declines -Contraception: Declines -Mammogram: BI-RADS 1 10/2022, scheduled for today -Colonoscopy: Last in 2013, defer to PCP for management -Dexa: Normal 02/2023, repeat in 10 years -Reviewed AHA recommendation of 150 minutes of moderate-intensity activity per week -Counseled on consuming varied diet rich in whole grains and fruits/vegetables -Covid-19 and influenza vaccination recommendations reviewed, vaccinated and declines booster -Remainder of medical problems to be managed by PCP -Advised I do not recommend or manage testosterone pellets. Plans to continue having this managed by outside clinic. Encounter for weight loss counseling 09/27/2023 Metabolic and nutritional disorder 09/27/2023 Mixed hyperlipidemia 08/11/2023 Assessment & Plan (08/11/2023 8:30 AM CDT): Continue as before. PVC (premature ventricular contraction) 09/17/19 23 SVT (supraventricular tachycardia) 12/20/2020 Overview (08/01/2021): Symptoms with NSR; ST 105 on MCT NS SVT Cough 08/28/2020 Assessment & Plan (08/28/2020 12:44 PM CDT): Chest Xray today Allergic rhinitis 08/28/2020 Assessment & Plan (08/28/2020 12:46 PM CDT): OTC allergy med PRN (may continue coricidin or zyrtec) Hypotension 10/16/2019 S/P mitral valve repair 08/07/2019 Assessment & Plan (08/11/2023 8:30 AM CDT): Stable, doing well Acute postoperative pain 06/29/2019 Assessment & Plan (07/02/2019 1:25 PM CDT): Continue oxycodone Continue tylenolol Assessment & Plan (06/30/2019 12:45 PM CDT): Expected postop pain. Endorsing incisional pain that is relieved with current pain regimen Assessment & Plan (06/29/2019 2:21 PM CDT): Expected postop pain. Currently sedated on Precedex. - PRN dilaudid, start PRN Tylenol and Oxycodone once pt extubated and tolerating PO - Wean Precedex for PSV trial Acute blood loss anemia 06/29/2019 Assessment & Plan (07/01/2019 1:14 PM CDT): H/h stable Assessment & Plan (06/30/2019 1:08 PM CDT): Stable, no indication for transfusion Trend w am labs unless clinically indicated sooner Assessment & Plan (06/29/2019 2:25 PM CDT): Received 1 PLT intraop, no PRBC. Postop Hct 37. - No indication for transfusion - Monitor CT output hourly and correct coagulopathies if output > 150ml/hr Mitral valve insufficiency 05/02/2019 Overview (06/30/2019): 06/29/19: Complex mitral valve repair using a 34 Physio II annuloplasty ring as well as resection of the P2 portion of the leaflet by Dr. Giordano Assessment & Plan (07/04/2019 12:17 PM CDT): S/p MV repair pod 5 A-fib post op now NSR Continue beta jen, asa, low dose lasix No chest tubes, no wires. Follow up echocardiogram pending. Assessment & Plan (06/30/2019 12:44 PM CDT): S/p MV repair. ICU Standards of Care: - start aspirin - no BB until off AIRCRAFT SYSTEMS REPAIRER but adding Amio for Afib prop per CTS - Eventual B-jen for A fib ppx when off inotropes - Colace, Senna, and Miralax for bowel regimen - SSI for glycemic control Q4 hrs ( glucose 116-162) - clears for now until ensuring pt not nauseated - H2 - SCDs/add SQH - PT for decreased mobility post surgery Assessment & Plan (06/29/2019 2:26 PM CDT): S/p MV repair. ICU Standards of Care: - ASA for anticoagulation POD 1 - Eventual B-jen for A fib ppx when off inotropes - Colace, Senna, and Miralax for bowel regimen - SSI for glycemic control Q4 hrs - ADAT when extubated - GI ppx with H2 jen while intubated - SCDs for DVT ppx - Plan to start SQH POD 1 if PLT > 100 and no active bleeding - PT for decreased mobility post surgery - Continue robi-op Cefazolin and Vancomycin x 24 hrs for surgical site infection ppx ROJELIO (obstructive sleep apnea) 12/14/2018 Obesity, Class II, BMI 35-39.9 08/24/2018 Snoring 08/24/2018 Daytime sleepiness 08/24/2018 Mitral valve regurgitation 08/24/2018 Resolved Problems Problem Noted Date Diagnosed Date Resolved Date Atrial fibrillation 07/01/2019 09/17/19 23 Assessment & Plan (07/04/2019 12:17 PM CDT): Post op a-fib Maintaining SR 80's on amiodarone load day 2. Wires out yesterday Check daily qtc Acute pulmonary insufficiency 06/29/2019 07/02/2019 Assessment & Plan (07/01/2019 1:12 PM CDT): cxr today after tube removal Assessment & Plan (06/30/2019 1:01 PM CDT): NC 2L, xray with atelectasis post operatively, History of ROJELIO on home CPAP. - dc pac/cordis to facilitate pt ambulating - Out of bed, physical therapy POD 1 - Home nocturnal @ CPAP - optimize pain control to facilitate deep breathing Assessment & Plan (06/29/2019 2:33 PM CDT): Pt arrived intubated following OR. ABG WNL. History of ROJELIO on home CPAP. - Wean sedation for PSV trial with goal to extubate - Encourage incentive spirometry when extubated - Out of bed, physical therapy POD 1 - Home nocturnal CPAP Myocardial stunning 06/29/2019 07/01/19 20 Assessment & Plan (06/30/2019 1:04 PM CDT): Post procedure DAWN with normal LV/RV systolic function on AIRCRAFT SYSTEMS REPAIRER @ 4mcg, trace MR. Index 3.2, MAP 65-80, RAP < 10 - DC PAC/cordis - AIRCRAFT SYSTEMS REPAIRER wean q6h for scv02 > 65 - no indication for diuresis Assessment & Plan (06/29/2019 2:24 PM CDT): Post procedure DAWN with normal LV/RV systolic function on AIRCRAFT SYSTEMS REPAIRER @ 2mcg, trace MR. Cardiac insuffiency following cardiac surgery. CI 2.46 on arrival, CVP 10-12. - Keep AIRCRAFT SYSTEMS REPAIRER @ 2mcg - Consider wean tonight after extubated - MAP goal > 65, SBP < 140 Hypertension 06/29/2019 07/01/2019 Assessment & Plan (06/29/2019 2:26 PM CDT): No home antihypertensives. SBP up to 160s on arrival. - Nicardipine for SBP goal 130-140 Immunizations Immunization Administration Dates Next Due [employer] SARS-CoV-2 Vaccination 07/27/2020 Social History Tobacco Use Types Packs/Day Years Used Date Smoking Tobacco: Never Smokeless Tobacco: Never Tobacco Cessation:Counseling Given: Not Answered Alcohol Use Standard Drinks/Week Comments Yes 0 (1 standard drink = 0.6 oz pur e alcohol) very rare AUDIT-C Answer Date Recorded Q1: How often do you have a drink containing alc ohol? Monthly or less 03/03/2024 Q2: How many drinks containi ng alcohol do you have on a typical day when you are drinking? 1 or 2 03/03/2024 Q3: How often do you have si x or more drinks on one occasion? Never 03/03/2024 PHQ-2 Answer Date Recorded PHQ-2 Total Score (If total score is 3 or more points, staff should administer the PHQ-9) 0 08/28/2020 Exercise Vital Sign Answer Date Recorde d On average, how many days pe r week do you engage in moderate to strenuous exercise (like a brisk walk)? 7 days 11/23/2023 On average, how many minutes do you engage in exercise at this level? 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 [employer] Not on file N ot on file Not on file Last Filed Vital Signs Vital Sign Reading Time Taken Comments Blood Pressure 108/76 06/20/2024 2:21 PM FURNITURE DUSTER Pulse 79 06/20/2024 2:21 PM FURNITURE DUSTER Temperature 37.1 C (98.8 F) 06/20/2024 2:21 PM FURNITURE DUSTER Respiratory Rate 24 06/20/2024 2:21 PM FURNITURE DUSTER Oxygen Saturation 97% 06/20/2024 2:21 PM FURNITURE DUSTER Inhaled Oxygen Concentration - - Weight 85.3 kg (188 lb) 06/20/2024 2:21 PM FURNITURE DUSTER Height 162.6 cm (5' 4 ) 03/06/2024 9:08 AM FURNITURE DUSTER Body Mass Index 32.27 03/06/2024 9:08 AM FURNITURE DUSTER Plan of Treatment Not on file Medical Devices Implanted Type Area Oil Burner Journeyman Device Identifier Shelf Expiration Date Model / Serial / Lot [employer] [id number] Jolie rds Physio Ii 34mm Newsome Sew Mitral Ring - [id number] - [id number] Implanted:Qty: 1 on 06/29/2019 by Diego Giordano MD at [facility] Prosthetic Valve N/A: Heart [employer] 01/24/2024 [id number] / [id number] / Description:JUAN DS PHYSIO II ANNULOPLASTY RING Procedures Procedure Name Priority Date/Time Associated Diagnosis Comments XR CHEST PA LATERAL 2 VIEWS Schedule ELMER, Read ELMER (Appt Today, Awaiting Results) 06/20/2024 2:43 PM FURNITURE DUSTER Acute cough SCREENING MAMMOGRAM BILATERAL W JULIAN Schedule Routine, Read Routine (OP Routine) 11/23/2023 10:10 AM CDT Screening mammogram, encounter for HIGH RISK HPV DNA DETECTION WITH GENOTYPING Routine 11/23/2023 9:51 AM CDT Well woman exam COLONOSCOPY Routine 05/26/2013 from Last 3 Months or Most Recently Relevant to Health Maintenance Results * XR Chest Pa Lateral 2 Views (06/20/2024 2:43 PM FURNITURE DUSTER) Anatomical Region Laterality Modality Body, Chest N/A Digital Radiogra phy 06/20/2024 4:32 PM FURNITURE DUSTER Narrative 06/20/2024 4:32 PM FURNITURE DUSTER EXAM DESCRIPTION: XR CHEST PA LATERAL 2 VIEWS REASON FOR STUDY: cough Pt complains of cough x 1 week. No asthma,copd,cancer. Hx mitral valve repair. Socially smoked as a teen. TECHNIQUE: There are 2 radiographic view(s) of the chest. COMPARISON: Prior exam 08/21/2022, 07/16/2022 and 08/28/2020 FINDINGS: LUNGS: Pulmonary vascularity appears normal. No confluent infiltrate or effusion. Costophrenic angles are sharp. HEART/MEDIASTINUM: Prior median sternotomy and prosthetic heart valve. LINES/TUBES: None. BONES: Mild spondylosis thoracic spine. IMPRESSION: No acute findings or infiltrate. THIS IS AN ELECTRONICALLY VERIFIED FINAL REPORT 06/20/2024 4:32 PM - Electronically signed by Tyrell BLAKE T: Report ID: [id number] Reading Location: [place] [address] Procedure Note Tyrell Lawrence MD - 06/20/2024 EXAM DESCRIPTION: XR CHEST PA LATERAL 2 VIEWS REASON FOR STUDY: cough Pt complains of cough x 1 week. No asthma,copd,cancer. Hx mitral valverepair. Socially smoked as a teen. TECHNIQUE: There are 2 radiographic view(s) of the chest. COMPARISON: Prior exam 08/21/2022, 07/16/2022 and 08/28/2020 FINDINGS: LUNGS: Pulmonary vascularity appears normal. No confluent infiltrate or effusion. Costophrenic angles are sharp. HEART/MEDIASTINUM: Prior median sternotomy and prosthetic heart valve. LINES/TUBES: None. BONES: Mild spondylosis thoracic spine. IMPRESSION: No acute findings or infiltrate. THIS IS AN ELECTRONICALLY VERIFIED FINAL REPORT 06/20/2024 4:32 PM - Electronically signed by Tyrell BLAKE T: Report ID: [id number] Reading Location: [id number]en CLARKE IMG XR PROCEDURES Final Result * Screening Mammogram Bilateral W Julian (11/23/2023 10:10 AM CDT) Anatomical Region Laterality Modality Breast Bilateral Mammography Narrative 11/25/2023 11:13 AM CDT Mammogram Technique: Bilateral Digital Breast Tomosynthesis, Bilateral C-view 2D Screening mammogram. Views obtained: bilateral craniocaudal and bilateral mediolateral oblique. Computer Aided Detection was performed. Mammogram Findings: The present examination has been compared to prior imaging studies performed at [facility] on 10/08/2020 and 10/22/2022. There are scattered areas of fibroglandular density. There is no suspicious abnormality in either breast. Impression: There is no mammographic evidence of malignancy. Annual screening mammography is recommended. OVERALL FINAL ASSESSMENT: BI-RADS CATEGORY 1: Negative. Procedure Note Lucy Jones MD - 11/25/2023 Mammogram Technique: Bilateral Digital Breast Tomosynthesis, Bilateral C-view 2D Screening mammogram. Views obtained: bilateral craniocaudal and bilateral mediolateral oblique. Computer Aided Detection was performed. Mammogram Findings: The present examination has been compared to prior imaging studies performed at [facility] on 10/08/2020 and 10/22/2022. There are scattered areas of fibroglandular density. There is no suspicious abnormality in either breast. Impression: There is no mammographic evidence of malignancy. Annual screening mammography is recommended. OVERALL FINAL ASSESSMENT: BI-RADS CATEGORY 1: Negative. us Self Screening Mammogram IMG MAMMO PROCEDURES Fi nal Result * High Risk HPV DNA Detection with Genotyping (Molecular component) (11/23/2023 9:51 AM CDT) HPV HR 16 Not Detected Not Detected [facility] HPV HR 18 Not Detected Not Detected [facility] HPV HR Non 16/18 Not Detected Not Detected [facility] Comment: Interpretive Data Nucleic acid amplification for detection of high-risk Human Papilloma virus (HPV) is performed by the Shayy Sarah 6800 HPV test. This assay specifically detects HPV-16 and HPV-18 genotypes. The following HPV genotypes are detected as high-risk HPV: HPV-31, 33, 35, ,39, 45, 51, 52, 56, 58, 59, 66, and 68. This assay has been approved by the [place] Food and Drug Administration for detection of HPV in cervical specimens collected by a physician using an endocervical brush/spatula or cervical broom and placed in the ThinPrep Pap Test PreservCyt collection containers. The performance characteristics of this test have been verified by the [facility] Molecular Infectious Disease laboratory. Correlate with separately reported cytology results, as applicable. Interpretive data last revised 22 Endocervical 11/23/2023 9:51 AM CDT 11/24/2023 11:27 AM CDT Narrative [facility] - 11/24/2023 9:16 PM CDT Clinical history and diagnosis->Remote history of abnormal Number of vials->1 Testing type->Screening Last menstrual period (date if known)->n/a Menstrual status->Postmenopausal Pratik Pascal MD LAB BODY FLUIDS AND STOOL S ORDERABLES Final Result Performing Organization Address City/State/[facility] Co de Phone Number [facility] [place] [address] [facility] * Colonoscopy (05/26/2013) Anatomical Region Laterality Modality Other Narrative 05/26/2013 Pt had in 2013 with [facility] it was normal Historical Provider ENDOSCOPY PROCEDURES Jessa caballero Result from Last 3 Months or Most Recently Relevant to Health Maintenance Insurance [facility] [id number] [employer] OPEN ACCESS [facility] [id number] [facility] [id number] Advance Directives For more information, please contact: [phone] * Full Code (Latest Code Status on File) Date Activated Date Inactivated Comments 06/29/2019 2:08 PM 07/04/2019 8:27 PM Care Teams Side Splitter Relationship Specialty Start Date End Date Keon Pelaez MD [address] [facility] [address] [place] [address] PCP - General Internal Medicine 07/21/18 Robin Mae MD [address] [facility] [address] [place] [address] Referring Physician Cardiology 08/10/18 Harman Bonner MD [address] [facility] [address] [place] [address] Referring Physician Cardiology 04/26/19 Diego Giordano MD [id number] [place] [address] Surgeon Cardiothoracic Surgery 07/04/19
--- OUTSIDE RECORDS SUMMARY | 2024-07-17 00:36 | XMS_ITS | Clinical Summary ---
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 Previously receiving annual Paps with previous Senior Energy Market Coordinator, NILM [phone]. Repeated today with HPV co-testing. -HPV vaccine: [...] start aspirin - no BB until off HEALTHCARE NETWORK CONSULTANT but adding Amio for Afib prop per [...] Maintaining SR 80's on amiodarone load day 2/3. Wires out yesterday Check daily qtc Acute [...] DAWN with normal LV/RV systolic function on HEALTHCARE NETWORK CONSULTANT @ 4mcg, trace MR. Index 3.2, MAP 65-80, RAP < 10 - DC PAC/cordis - HEALTHCARE NETWORK CONSULTANT wean q6h for scv02 > 65 - no indication for diuresis Assessment & Plan (06/29/2019 2:24 PM CDT): Post procedure DAWN with normal LV/RV systolic function on HEALTHCARE NETWORK CONSULTANT @ 2mcg, trace MR. Cardiac insuffiency following cardiac surgery. CI 2.46 on arrival, CVP 10-12. - Keep HEALTHCARE NETWORK CONSULTANT @ 2mcg - Consider wean tonight after extubated - MAP goal > 65, SBP < 140 Hypertension 06/29/2019 07/01/2019 Assessment & Plan (06/29/2019 2:26 PM CDT): No home antihypertensives. SBP up to 160s on arrival. - Nicardipine for SBP goal 130-140 Encounters Date Type Department Care Team Description 06/26/2024 Orders Only [facility] [facility] [address] [facility] [place] [address] [place], [place] 06/21/2024 Telephone [facility] Convenient Care at [address] [address] Ana Rosa Alvarez MA 06/20/2024 2:40 PM CONCRETE INSPECTOR Ancillary Procedure [facility] Imaging at [address] [address] Acute cough 06/20/2024 2:30 PM CONCRETE INSPECTOR Office Visit [facility] at [address] [address] Coreen Siu PA Acute cough (Primary Dx) 06/14/2024 1:00 PM CONCRETE INSPECTOR Telemedicine [facility] [address] [place] [address] Medical Office Building [address], [address] [place] [address] Maylin Dent MD Encounter for weight loss counseling (Primary Dx); Metabolic and nutritional disorder; Obesity, Class II, BMI 35-39.9 05/15/2024 Orders Only [facility] [address] [place] [address] Office [address] [place] [address] Hazel Gaspar NP Class 2 obesity from Last 3 Months Immunizations Immunization Administration Dates Next Due Devin (J&J) SARS-CoV-2 Vaccination 07/27/2020 Surgical History Surgery Date Site/Laterality Comments TONSILLECTOMY WISDOM TOOTH EXTRACTION MITRAL VALVE REPAIR 04/19/2019 - 04/18/2020 HYSTEROSCOPY W/ POLYPECTOMY BASAL CELL CARCINOMA EXCISION Medical History Medical History Date Comments Heart murmur Hypertension Sleep apnea Atrial fibrillation (HCC) 07/01/2019 Mixed hyperlipidemia 08/11/2023 Basal cell carcinoma of skin Family History Medical History Relation Name Comments Hypertension Brother Sudden Cardiac Brother Heart failure Father Coronary artery disease Mother Hypertension Mother Hypertension Sister Anesthesia problems Neg Hx Bleeding Disorder Neg Hx Breast cancer Neg Hx Clotting disorder Neg Hx Colon cancer Neg Hx Ovarian cancer Neg Hx Pancreatic cancer Neg Hx Uterine cancer Neg Hx Relation Name Status Comments Brother Father Mother Sister Social History Tobacco Use Types Packs/Day Years [...] on file Legal Sex Female 4:01 AM CONCRETE INSPECTOR Gender Identity Female 12/15/2019 8:16 PM CDT Sexual Orientation Straight 12/13/2020 8: 03 AM CDT 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 [employer] Not on file N ot on file Not on file Obstetrics History Para Term AB IAB SAB Ectopic Multiple Livin g Live Births 3 3 3 3 3 Date Outcome GA Total Labor Labor/2nd/3rd Weight Sex Type Anes PTL Mirella A1 A5 Name Clin 1980 Term 3.345 kg (7 lb 6 oz) M Vaginal Living Complications:None 1982 Term 4.111 kg (9 lb 1 oz) M Vaginal Living Complications:None 1985 Term 4.167 kg (9 lb 3 oz) F Vaginal Living Complications:None Last Filed Vital Signs Vital Sign Reading Time Taken Comments Blood Pressure 108/76 06/20/2024 2:21 PM CONCRETE INSPECTOR Pulse 79 06/20/2024 2:21 PM CONCRETE INSPECTOR Temperature 37.1 C (98.8 F) 06/20/2024 2:21 PM CONCRETE INSPECTOR Respiratory Rate 24 06/20/2024 2:21 PM CONCRETE INSPECTOR Oxygen Saturation 97% 06/20/2024 2:21 PM CONCRETE INSPECTOR Inhaled Oxygen Concentration - - Weight 85.3 kg (188 lb) 06/20/2024 2:21 PM CONCRETE INSPECTOR Height 162.6 cm (5' 4 ) 03/06/2024 9:08 AM CONCRETE INSPECTOR Body Mass Index 32.27 03/06/2024 9:08 AM CONCRETE INSPECTOR Plan of Treatment Health Maintenance Due Date Last Done Comments Hepatitis C Screening 1960 Osteoporosis Screening-Bone Density Scan 1960 DTaP/Tdap/Td Vaccine (1 - Tdap) 1969 Hepatitis B Screening 1976 Pneumococcal vaccine 65+ (1 of 1 - PCV) 2008 Zoster Vaccine (1 of 2) 2008 Fall Risk Assessment 07/03/2020 07/04/2019 Depression Screening 08/28/2021 08/28/2020, 08/29/19 21 Colon Cancer Screening-Colonoscopy 05/26/20232013 Covid-19 Vaccine ( season) 12/19/202301/2021 Influenza Vaccine (#1) 2023 Breast Cancer Screening-Mammogram 11/22/2024 024, 10/23/2020 Well Visit 65+ 11/22/2024 11/23/2023, 05/26/2021 Colon Cancer Screening-CT Colonography Discontinued Colon Cancer Screening-DNA Stool Discontinued 05/26/19 14 Colon Cancer Screening-FIT Discontinued 05/26/2013 Colon Cancer Screening-Sigmoidoscopy Discontinued 10/2013 Cervical Cancer Screening Discontinued 11/23/2023, 09/2023 Medical Devices Implanted Type Area Director Medical Surgical Device Identifier Shelf Expiration Date Model / Serial / Lot [employer] [id number] Annalise-Jamie rds Physio Ii 34mm Newsome Sew Mitral Ring - [id number] - [id number] Implanted:Qty: 1 on 06/29/2019 by Diego Giordano MD at [facility] Prosthetic Valve N/A: Heart [employer] 01/24/2024 [id number] / [id number] / Description:ANNALISE-ADRIAN DS PHYSIO II ANNULOPLASTY RING Procedures Procedure Name Priority Date/Time Associated Diagnosis Comments XR CHEST PA LATERAL 2 VIEWS Schedule ELMER, Read ELMER (Appt Today, Awaiting Results) 06/20/2024 2:43 PM CONCRETE INSPECTOR Acute cough SCREENING MAMMOGRAM BILATERAL W JULIAN Schedule Routine, Read Routine (OP Routine) 11/23/2023 10:10 AM CDT Screening mammogram, encounter for HIGH RISK HPV DNA DETECTION WITH GENOTYPING Routine 11/23/2023 9:51 AM CDT Well woman exam COLONOSCOPY Routine 05/26/2013 from Last 3 Months or Most Recently Relevant to Health Maintenance Results * XR Chest Pa Lateral 2 Views (06/20/2024 2:43 PM CONCRETE INSPECTOR) Anatomical Region Laterality Modality Body, Chest N/A Digital Radiogra phy 06/20/2024 4:32 PM CONCRETE INSPECTOR Narrative 06/20/2024 4:32 PM CONCRETE INSPECTOR EXAM DESCRIPTION: XR CHEST PA LATERAL 2 [...] 4:32 PM - Electronically signed by Tyrell Lawrence M.D. MJ T: Report ID: [id number] Reading Location: [id number] Procedure Note Tyrell Lawrence MD - 06/20/2024 [...] 4:32 PM - Electronically signed by Tyrell Guanin M.D. MJ T: Report ID: [id number] Reading Location: [id number] Coreen CLARKE IMG XR PROCEDURES Final Result [...] compared to prior imaging studies performed at [facility] on 10/08/2020 and 10/22/2022. There are [...] compared to prior imaging studies performed at [facility] on 10/08/2020 and 10/22/2022. There are [...] HPV HR 16 Not Detected Not Detected BJ HPV HR 18 Not Detected Not Detected [facility] HPV HR Non 16/18 Not Detected Not Detected [facility] Comment: Interpretive Data Nucleic acid amplification for [...] this test have been verified by the [facility] Molecular Infectious Disease laboratory. Correlate with separately reported cytology results, as applicable. Interpretive data last revised 22 Endocervical 11/23/2023 9:51 AM CDT 11/24/2023 11:27 AM CDT Narrative [facility] - 11/24/2023 9:16 PM CDT Clinical history and diagnosis->Remote history of abnormal Number of vials->1 Testing type->Screening Last menstrual period (date if known)->n/a Menstrual status->Postmenopausal Pratik Pascal MD LAB BODY FLUIDS AND STOOL S ORDERABLES Final Result [facility] Department [place] [address] [facility] * Colonoscopy (05/26/2013) Anatomical Region Laterality Modality Other Narrative 05/26/2013 Pt had in 2013 with [place] it was normal Historical Provider ENDOSCOPY PROCEDURES Jessa ada Result from Last 3 Months or Most Recently Relevant to Health Maintenance Insurance [facility] [id number] [facility] [id number] [facility] [id number] Advance Directives For more information, please contact: [phone] * Full Code (Latest Code Status on File) Date Activated Date Inactivated Comments 06/29/2019 2:08 PM 07/04/2019 8:27 PM Care Teams Healthcare Liaison Relationship Specialty Start Date End Date Keon Pelaez MD [id number] [place] [address] PCP - General Internal Medicine 07/21/18 Robin Mae MD [address] [place] [address] Referring Physician Cardiology 08/10/18 Harman Bonner MD [address] [facility] [address] [place] [address] Referring Physician Cardiology 04/26/19 Diego Giordano MD [phone] [place] [address] Surgeon Cardiothoracic Surgery 07/04/19
[2024-07-17 07:31] VITALS: BP 128/75; PULSE 78; RESP 20; TEMP 35.8; O2SAT 100
[2024-07-17] MEDS: LACTATED RINGERS 1,000 ML 150 ML IV CONT (07:42)
--- NOTE | 2024-07-17 08:11 | WPDANESEPPF ---
Anes - Initial Pre Proc Eval Procedure: Operation Date: 07/17/24 08:30 Proposed Procedures p Screening Colonoscopy - Irvin Hong MD Date/Time: 07/17/24 08:11 Surgeon: Irvin Hong MD Pre Op Diagnosis: neoplasm screening Patient Data Age: 64 Gender: F Height: 1.63 m Weight: 83.2 kg Last Vital Signs Temp 96.5 F L 07/17/24 07:31 Pulse 78 07/17/24 07:31 Resp 20 07/17/24 07:31 BP 128/75 07/17/24 07:31 Pulse Ox 100 07/17/24 07:31 O2 Del Method Room Air 07/17/24 07:31 Allergies Allergy/AdvReac Type Severity Reaction Status Date / Time amoxicillin AdvReac Intermediate NAUSEA/VOMI Verified 07/17/24 07:28 TING Sutures AdvReac Other Verified 07/17/24 07:28 Home Medications ?Medication ?Instructions ?Recorded ?Confirmed ?Type Lactobacillus 40-Bifidobact 1 cap PO QAM 01/02/21 07/17/24 History 3-S.thermophilus 100 billion cell capsule (Probiotic) aspirin 81 mg tablet,delayed 81 mg PO DAILY 01/02/21 07/17/24 History release cholecalciferol (vitamin D3) 50 50 mcg PO DAILY 01/02/21 07/17/24 History mcg (2,000 unit) capsule (Vitamin D3) metoprolol succinate 25 mg 37.5 mg PO DAILY 01/02/21 07/17/24 History tablet,extended release 24 hr progesterone micronized 200 mg 200 mg PO DAILY 11/30/22 07/17/24 History capsule thyroid (pork) 30 mg tablet (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 [facility] Past Medical History Medical History SVT (supraventricular tachycardia) Status post hysteroscopy 2020 with removal of polyps (normal spontaneous vaginal delivery) x3 ROJELIO (obstructive sleep apnea) Palpitations Surgical History Surgical History History of tonsillectomy and adenoidectomy H/O mitral valve repair Social History Social History Social History: Caffeine-coffee Smoking status: Never smoker Alcohol intake: never Substance use: never Substance use type: does not use Lack of Transportation: No Lack of Food: Never True Current Housing: I Have Housing Concerned About Future Housing: No Difficulty Paying Gas/Electric Bills: No Difficulty Paying for Meds: No Currently Unemployed: No Education: High School Diploma/GED Difficulty w/ Childcare or Family Care: No Living arrangements: with family Spiritual care concerns: No Anes - Eval Final PreProcedure Day of Procedure 07/17/24 08:11 Patient weight: obese Lungs: normal air movement Airway: Mallampati scale class II Neurological: alert and oriented Last oral intake: >/= 8 hours ASA classification: III Emergent: no Anesthetic plan: proceed Anesthesia type and monitoring: general GIVS and standard monitoring Results Review: All pre-operative results and documents have been reviewed as part of the pre-operative evaluation. Hyperlipidemia, ROJELIO on CPAP, hx of SVT on b jen taken this am. Informed Consent: The patient's anesthetic plan and its attendant risks and benefits were discussed with the patient/family/POA. Questions were solicited and answers provided to the satisfaction of the patient/family/POA.
--- NOTE | 2024-07-17 08:26 | P.HP_ITS ---
H&P: HPI History of Present Illness Date/Time: 07/17/24 08:26 Chief Complaint: Screening colonoscopy Narrative: This is the patient's first colonoscopy after 10 years. There are no GI symptoms and there is no family history of colorectal cancer. Review of Systems Review of Systems: All systems reviewed & are unremarkable except as noted in HPI and below PMFSH Past Medical History Medical History SVT (supraventricular tachycardia) Status post hysteroscopy 2020 with removal of polyps (normal spontaneous vaginal delivery) x3 ROJELIO (obstructive sleep apnea) Palpitations Surgical History Surgical History History of tonsillectomy and adenoidectomy H/O mitral valve repair Social History Social History Social History: Caffeine-coffee Smoking status: Never smoker Alcohol intake: never Substance use: never Substance use type: does not use Lack of Transportation: No Lack of Food: Never True Current Housing: I Have Housing Concerned About Future Housing: No Difficulty Paying Gas/Electric Bills: No Difficulty Paying for Meds: No Currently Unemployed: No Education: High School Diploma/GED Difficulty w/ Childcare or Family Care: No Living arrangements: with family Spiritual care concerns: No Meds Home Medications and Allergies Home Medications ?Medication ?Instructions ?Recorded ?Confirmed ?Type Lactobacillus 40-Bifidobact 1 cap PO QAM 01/02/21 07/17/24 History 3-S.thermophilus 100 billion cell capsule (Probiotic) aspirin 81 mg tablet,delayed 81 mg PO DAILY 01/02/21 07/17/24 History release cholecalciferol (vitamin D3) 50 50 mcg PO DAILY 01/02/21 07/17/24 History mcg (2,000 unit) capsule (Vitamin D3) metoprolol succinate 25 mg 37.5 mg PO DAILY 01/02/21 07/17/24 History tablet,extended release 24 hr progesterone micronized 200 mg 200 mg PO DAILY 11/30/22 07/17/24 History capsule thyroid (pork) 30 mg tablet (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 30 mg PO DAILY 11/30/22 07/17/24 History Thyroid) rosuvastatin 5 mg tablet (Crestor) 5 mg PO .COMPLEX 03/02/23 07/17/24 History alprazolam 0.25 mg tablet 0.25 mg PO QID PRN anxiety 07/05/24 07/17/24 History famotidine 20 mg tablet 20 mg PO BID 07/05/24 07/17/24 History tirzepatide (weight loss) 2.5 2.5 mg subcut WEEKLY 07/05/24 07/17/24 History mg/0.5 mL subcutaneous pen injector (Zepbound) Allergies Allergy/AdvReac Type Severity Reaction Status Date / Time amoxicillin AdvReac Intermediate NAUSEA/VOMI Verified 07/17/24 07:28 TING Sutures AdvReac Other Verified 07/17/24 07:28 Vital Signs Vital Signs - 24 hr 07/17/24 07:31 Temperature 96.5 F L Pulse Rate 78 Respiratory Rate 20 Blood Pressure 128/75 Pulse Oximetry 100 Oxygen Delivery Room Air Exam Const: General: cooperative and healthy appearing Resp: Effort & Inspection: normal respiratory effort and able to speak in complete sentences Auscultation: clear to auscultation bilaterally Cardio: Rate: regular rate Rhythm: regular rhythm GI: Inspection: normal to inspection GI Palp: No No hepatosplenomegaly present Auscultation: normal bowel sounds Rectal Exam: deferred Skin: General skin exam: normal color Psych: Appearance: grossly normal Mental Status: mental status grossly normal Assessment and Plan Assessment and plan (1) Encounter for screening colonoscopy: Code(s): Z12.11 - Encounter for screening for malignant neoplasm of colon Status: Acute Assessment and Plan: The patient is deemed a good candidate for the procedure. Consent signed. Will proceed.
[2024-07-17 08:53] VITALS: BP 93/58; PULSE 74; RESP 20; O2SAT 97
[2024-07-17 09:03] VITALS: BP 97/60; PULSE 72; RESP 20; O2SAT 99
[2024-07-17 09:13] VITALS: BP 119/76; PULSE 67; RESP 20; O2SAT 100
== END 2024-07-17 09:28 | disposition home or self-care (01) ==
PROVIDERS: PCP Internal Medicine; Referring Provider Internal Medicine; Visit Provider Internal Medicine Gastroenterology
PROC: 0DJD8ZZ Inspection of Lower Intestinal Tract, Via Natural or Artificial Opening Endoscopic (ICD-10-PCS; CPT 45378; principal; 2024-07-17 08:30)
DX: Z12.11 Encounter for screening for malignant neoplasm of colon (principal); K64.8 Other hemorrhoids; K57.30 Diverticulosis of large intestine without perforation or abscess without bleeding; I47.10 Supraventricular tachycardia, unspecified; G47.33 Obstructive sleep apnea (adult) (pediatric); R00.2 Palpitations; E66.9 Obesity, unspecified; Z68.31 Body mass index [BMI] 31.0-31.9, adult; Z79.82 Long term (current) use of aspirin; Z79.85 Long-term (current) use of injectable non-insulin antidiabetic drugs; Z98.890 Other specified postprocedural states
CPT/HCPCS: 45378; J2003; J2704; J7120

== ENCOUNTER 2025-03-26 07:26 | Outpatient (CLI) | payer OTHER, SELFPAY ==
--- NOTE | ~2025-03-26 | DEXA_ITS ---
Bone Density Report Name: KEVON WATSON Age: 64 Sex: Female Ethnicity: White Date of : 1960 Indication: postmenopausal; screening for osteoporosis; height loss; Referring Provider: Latanya, Keon Kamara Study: Bone densitometry was performed. Exam Date: March 26, 2025 Accession number: [id number] Bone Density: Region BMD T-score Z-score Classification AP Spine(L1-L4) 0.923 -1.1 0.8 Osteopenia Femoral Neck (Left) 0.881 0.3 1.9 Normal Total Hip (Left) 0.906 -0.3 1.0 Normal Femoral Neck (Right) 0.896 0.4 2.0 Normal Total Hip (Right) 0.969 0.2 1.5 Normal Total Hip Mean 0.938 -0.1 1.3 Normal World Health Organization criteria for BMD impression classify patients as: Normal (T-score at or above -1.0), Osteopenia (T-score between -1.0 and -2.5), or Osteoporosis (T-score at or below -2.5). 10-year Fracture Risk(1): Major Osteoporotic Fracture 6.5% Hip Fracture 0.2% Reported Risk Factors: [place] (), Neck BMD=0.881, BMI=29.4 (1) FRAX(R) Version 3.08. Fracture probability calculated for an untreated patient. Fracture probability may be lower if the patient has received treatment. Previous Exams: -- Region Exam Age BMD T-score BMD Change BMD Change Date g/cm2 vs Baseline vs Previous -- AP Spine (L1-L4) 03/26/2025 64 0.923 -1.1 -2.7%# -2.7%# 02/22/2023 62 0.949 -0.9 Total Hip(Left) 03/26/2025 64 0.906 -0.3 -7.2%# -7.2%# 02/22/2023 62 0.977 0.3 Total Hip(Right) 03/26/2025 64 0.969 0.2 -7.4%# -7.4%# 02/22/2023 62 1.047 0.9 -- *Denotes significance at 95% confidence level, LSC for AP Spine = 0.022 g/cm2, LSC for Total Hip = 0.027 g/cm2 # Denotes dissimilar scan types or analysis methods Clinical Information Provided by Patient: Has used the following medications: Vitamin D Patient maximum height was 66 Menopause Age: 49 No regular weight bearing exercise Does not regularly consume dairy products Drinks caffeinated beverages Onset of menses at age 9 Number of children 3 Impression: The patient has low bone mass, based on the Total Spine T-score. The patient has an estimated ten-year risk of hip fracture of 0.2% and an estimated ten-year risk of major fracture of 6.5%, based on the WHO FRAX algorithm. Unable to evaluate interval change due to the use of different scan modes. Discussion: BONE DENSITY IS LOW AT ONE OR MORE SKELETAL SITES. This patient's lowest T-score is low at one or more skeletal sites. It meets the World Health Organization's (WHO) criteria for ?low bone mass? (T-score between -1.0 and -2.5). The patient's 10-year risk of fracture as calculated by FRAX is less than the threshold where pharmacological therapy is recommended by the National Osteoporosis Foundation (NOF). However, all treatment decisions require clinical judgment and consideration of individual patient factors, including patient preferences, comorbidities, previous drug use, risk factors not captured in the FRAX model (e.g., frailty, falls, vitamin D deficiency, increased bone turnover, interval significant decline in bone density) and possible under or overestimation of fracture risk by FRAX. The patient should follow a healthful lifestyle (good nutrition with adequate calcium and vitamin D, and appropriate weight-bearing exercise). Follow-Up: Consider repeating this study in 2 to 3 years to reassess this patient's status, or sooner if there is some new clinical indication. Reported by: CHRISTOPHER on 03/26/2025 8:01:00 AM. Reviewed, dictated and finalized at location A.
== END 2025-03-26 07:27 | disposition home or self-care (01) ==
LOC: MICIMG 07:27
PROVIDERS: PCP Internal Medicine; Visit Provider Internal Medicine
DX: M85.88 Other specified disorders of bone density and structure, other site (principal); Z78.0 Asymptomatic menopausal state
CPT/HCPCS: 77080